=== PATIENT | female | born 2000 | race Caucasian/White ===

== ENCOUNTER 2021-05-02 15:51 | Emergency (ER) | payer OTHER, MEDICAID, SELFPAY ==
[2021-05-02 15:53] VITALS: BP 143/87; PULSE 85; RESP 15; TEMP 37.2; O2SAT 97; BMI 47.5
--- NOTE | 2021-05-02 15:56 | DI.RAD.S_ITS ---
PROCEDURE: XR FOOT RT MIN 3V INDICATIONS: foot pain TECHNIQUE: 3 views of the foot were acquired. COMPARISON: None. FINDINGS: Bones: No fractures or dislocations. No suspicious bony lesions. Soft tissues: No tibiotalar joint effusion. Achilles tendon appears normal. IMPRESSION: No acute fracture. No osseous lesion. If symptoms and/or clinical suspicion for pathology persist, further assessment with repeat, or advanced imaging (e.g., CT, MRI, or bone scan) may be helpful for further assessment. Dictated by: Bernardino Lopez M.D. on 05/02/2021 at 16:21 Approved by: Bernardino Lopez M.D. on 05/02/2021 at 16:22
[2021-05-02 18:25] VITALS: PULSE 89; O2SAT 96
[2021-05-02 18:26] VITALS: BP 121/74; PULSE 89; O2SAT 97
--- NOTE | 2021-05-02 18:39 | ED_ITS ---
HPI - Extremity Problem General Chief complaint: Extremity Problem,Nontraumatic Stated complaint: RIGHT FOOT SWEELING HURTS UNABLE TO PUT WEIGHT ON Time Seen by Provider: 05/02/21 18:33 Source: patient Mode of arrival: Ambulatory Related Data Previous Rx's Medication Instructions Recorded metformin 500 mg tablet 500 mg PO BID #60 tab 12/21/16 (Glucophage) norgestimate 0.25 mg-ethinyl 1 tab PO QDAY #1 pac 02/23/17 estradiol 35 mcg tablet (Ortho-Cyclen (28)) Allergies Allergy/AdvReac Type Severity Reaction Status Date / Time No Known Drug Allergies Allergy Verified 05/02/21 15:53 Patient History Social History Smoking Status: Unknown if ever smoked Smoking Status: Unknown if ever smoked alcohol intake frequency: holidays/special occasions only Substance Use Type: marijuana Exam Initial Vital Signs Initial Vital Signs: Vital Signs Temperature 99.0 F 05/02/21 15:53 Pulse Rate 85 05/02/21 15:53 Respiratory Rate 15 05/02/21 15:53 Blood Pressure 143/87 H 05/02/21 15:53 Pulse Oximetry 97 05/02/21 15:53 Course Orders Ordered: ED Orders 05/02/21 15:56 XR foot RT min 3V Stat Vital Signs Vital signs: Vital Signs - 8 hr 05/02/21 15:53 05/02/21 18:25 05/02/21 18:26 Temperature 99.0 F Pulse Rate 85 89 89 Respiratory Rate 15 Blood Pressure 143/87 H 121/74 Pulse Oximetry 97 96 97 MDM - Extremity (Nontraumatic) Imaging Data Extremity x-ray #1: Radiologist's Impression: [address] [address] XRay Report Signed Patient: Erin Tompkins MR#: [id number] : 2000 Acct:[id number] Age/Sex: 21 / F Date of Service: 05/02/21 Loc: ED Accession Number: [id number] ?? Procedure: XR foot RT min 3V Ordering Provider: Rosalina Vora D.O. PROCEDURE:? XR FOOT RT MIN 3V ? INDICATIONS:? foot pain ? TECHNIQUE:? 3 views of the foot were acquired.? ? COMPARISON:? None. ? FINDINGS:? ? Bones:? No fractures or dislocations.? No suspicious bony lesions.? ? Soft tissues:? No tibiotalar joint effusion.? Achilles tendon appears normal.? ? ? IMPRESSION:? No acute fracture. No osseous lesion. If symptoms and/or clinical suspicion for pathology persist, further assessment with repeat, or advanced imaging (e.g., CT, MRI, or bone scan) may be helpful for further assessment. ? ? Dictated by: Bernardino Lopez M.D. on 05/02/2021 at 16:21 ? ? Approved by: Bernardino Lopez M.D. on 05/02/2021 at 16:22 ? Discharge Plan Departure Prescriptions: No Action metformin [Glucophage] 500 MG tablet 500 mg PO BID Qty: 60 2RF norgestimate-ethinyl estradiol [Ortho-Cyclen (28)] 1 EACH tablet 1 tab PO QDAY Qty: 1 2RF Referrals: Nisha Guerra MD [Primary Care Provider] -
--- NOTE | 2021-05-02 19:28 | ED_ITS ---
HPI - Extremity Problem <Mando Sanchez PA-C - Last Filed: 05/02/21 19:54> General Chief complaint: Extremity Problem,Nontraumatic Stated complaint: RIGHT FOOT SWEELING HURTS UNABLE TO PUT WEIGHT ON Time Seen by Provider: 05/02/21 18:33 Source: patient Mode of arrival: Ambulatory History of Present Illness HPI Narrative: Patient is a 21-year-old female presenting to the emergency department today for evaluation of right foot pain. She explains that she awoke approximately 1 week ago with pain and associated swelling on the dorsal aspect of her right foot, noting that she heard a ?popping? coming from the right foot while she was walking. She states that her pain has gradually worsened throughout the week, noting that today she started to experience tingling in the right foot. Of note, patient denies any known trauma or injury to the area. She explains she is able to bear weight on the right lower extremity with increased discomfort. She denies fever, chills, chest pain, cough, shortness of breath, nausea, vomiting, diarrhea, constipation, abdominal pain, dysuria, hematuria, or any other concerning symptoms. No further concerns were voiced at this time. Related Data Previous Rx's Medication Instructions Recorded metformin 500 mg tablet 500 mg PO BID #60 tab 12/21/16 (Glucophage) norgestimate 0.25 mg-ethinyl 1 tab PO QDAY #1 pac 02/23/17 estradiol 35 mcg tablet (Ortho-Cyclen (28)) Allergies Allergy/AdvReac Type Severity Reaction Status Date / Time No Known Drug Allergies Allergy Verified 05/02/21 15:53 Review of Systems <Mando Sanchez PA-C - Last Filed: 05/02/21 19:54> Constitutional Constitutional: Denies chills, Denies fatigue, Denies fever(s), Denies frequent falls, Denies lethargy and Denies weakness Eyes Eyes: Denies loss of vision ENT Ears, Nose, Mouth, and Throat: Denies dizziness and Denies neck pain Cardiovascular Cardiovascular: Denies chest pain, Denies irregular heart rhythm, Denies lightheadedness, Denies palpitations, Denies dyspnea, Denies dyspnea on exertion and Denies orthopnea Respiratory Respiratory: Denies cough, Denies dyspnea, Denies dyspnea on exertion and Denies wheezing Gastrointestinal Gastrointestinal: Denies abdominal pain, Denies change in bowel habits, Denies diarrhea, Denies nausea and Denies vomiting Genitourinary Genitourinary: Denies hematuria, Denies flank pain, Denies urinary incontinence and Denies urinary urgency Musculoskeletal Musculoskeletal: Denies back pain, Reports arthralgias (Right foot pain), Reports joint swelling (Right foot), Denies muscle weakness, Denies neck pain, Denies numbness and Denies tingling Integumentary/Breasts Skin/Breast: Denies pruritus, Denies erythema, Denies rash and Denies wounds Neurologic Neurologic: Denies behavioral changes, Denies confusion, Denies dizziness, Denies frequent falls, Denies loss of vision, Denies numbness, Denies tingling and Denies weakness Psychiatric Psychiatric: Denies behavioral changes and Denies confusion Endocrine Endocrine: Denies fatigue and Denies palpitations Allergic/Immunologic Allergic/Immunologic: Denies wheezing Patient History <Mando Sanchez PA-C - Last Filed: 05/02/21 19:54> Social History Smoking Status: Unknown if ever smoked Smoking Status: Unknown if ever smoked alcohol intake frequency: holidays/special occasions only Substance Use Type: marijuana Exam <Mando Sanchez PA-C - Last Filed: 05/02/21 19:54> Narrative Exam Narrative: GENERAL: 21 year old patient appears stated age. Well-developed patient, in no acute distress. HEAD: Atraumatic. Normocephalic. EYES: Pupils equal round and reactive. Extraocular motions intact. No scleral icterus. No injection or drainage. ENT: Nose without bleeding, purulent drainage. Throat without erythema, tonsillar hypertrophy or exudate. Airway patent. NECK: Trachea midline. Non tender CARDIOVASCULAR: Regular rate and rhythm without murmurs, gallops, or rubs. RESPIRATORY: Clear to auscultation. Breath sounds equal bilaterally. No wheezes, rales, or rhonchi. GASTROINTESTINAL: Abdomen soft, non-tender, nondistended. EXTREMITIES: No edema. Mild tenderness to palpation appreciated along the dorsal aspect of the right foot distal to the deltoid ligament. No significant deformity or swelling appreciated. No overlying ecchymosis or erythema. No tenderness to palpation appreciated along the medial or lateral aspect of the right ankle. Gross motor function intact throughout the bilateral lower extremities. Good sensation light touch appreciated throughout the bilateral lower extremities. DP pulse palpated on the right. BACK: Nontender without deformity or crepitance. No flank tenderness. NEURO: AOx3. SKIN: No rash or erythema of visible areas Initial Vital Signs Initial Vital Signs: Vital Signs Temperature 99.0 F 05/02/21 15:53 Pulse Rate 85 05/02/21 15:53 Respiratory Rate 15 05/02/21 15:53 Blood Pressure 143/87 H 05/02/21 15:53 Pulse Oximetry 97 05/02/21 15:53 <Rosalina Vora DO - Last Filed: 05/05/21 08:43> Initial Vital Signs Initial Vital Signs: Vital Signs Temperature 99.0 F 05/02/21 15:53 Pulse Rate 85 05/02/21 15:53 Respiratory Rate 15 05/02/21 15:53 Blood Pressure 143/87 H 05/02/21 15:53 Pulse Oximetry 97 05/02/21 15:53 Course <Mando Sanchez PA-C - Last Filed: 05/02/21 19:54> Course Course Narrative: X-ray of right foot obtained. Orders Ordered: ED Orders 05/02/21 15:56 XR foot RT min 3V Stat Vital Signs Vital signs: Vital Signs - 8 hr 05/02/21 15:53 05/02/21 18:25 05/02/21 18:26 Temperature 99.0 F Pulse Rate 85 89 89 Respiratory Rate 15 Blood Pressure 143/87 H 121/74 Pulse Oximetry 97 96 97 05/02/21 19:46 05/02/21 19:47 Temperature Pulse Rate 85 Respiratory Rate Blood Pressure 153/95 H Pulse Oximetry 99 97 <Rosalina Vora DO - Last Filed: 05/05/21 08:43> Orders Ordered: ED Orders 05/02/21 15:56 XR foot RT min 3V Stat Vital Signs Vital signs: Vital Signs - 8 hr 05/02/21 15:53 05/02/21 18:25 05/02/21 18:26 Temperature 99.0 F Pulse Rate 85 89 89 Respiratory Rate 15 Blood Pressure 143/87 H 121/74 Pulse Oximetry 97 96 97 05/02/21 19:46 05/02/21 19:47 Temperature Pulse Rate 85 Respiratory Rate Blood Pressure 153/95 H Pulse Oximetry 99 97 MDM - Extremity (Nontraumatic) <Mando Sanchez PA-C - Last Filed: 05/02/21 19:54> Imaging Data Extremity x-ray #1: Radiologist's Impression: PROCEDURE:? XR FOOT RT MIN 3V ? INDICATIONS:? foot pain ? TECHNIQUE:? 3 views of the foot were acquired.? ? COMPARISON:? None. ? FINDINGS:? ? Bones:? No fractures or dislocations.? No suspicious bony lesions.? ? Soft tissues:? No tibiotalar joint effusion.? Achilles tendon appears normal.? ? ? IMPRESSION:? No acute fracture. No osseous lesion. If symptoms and/or clinical suspicion for pathology persist, further assessment with repeat, or advanced imaging (e.g., CT, MRI, or bone scan) may be helpful for further assessment. ? ? Dictated by: Bernardino Lopez M.D. on 05/02/2021 at 16:21 ? ? Approved by: Bernardino Lopez M.D. on 05/02/2021 at 16:22 ? [facility] Narrative Medical decision making narrative: Differential diagnosis to consider but not limited to fracture versus dislocation versus sprain versus strain. Overall, physical examination and x- ray imaging obtained in the emergency department today were very reassuring. I discussed results of the x-ray with the patient and informed her that no acute bony abnormality was identified on x-ray. I urged the patient to continue using Tylenol and ibuprofen as needed for pain management. Additionally, encourage the patient to continue to ice the right foot and keep it elevated with a compressive dressing to help alleviate discomfort. She expresses understanding and agrees to plan. Additionally, I informed the patient that OB setting up a referral for podiatric follow-up. Patient states that this time that she is comfortable being discharged home and is stable for discharge. Strict return precautions were discussed with the patient prior to discharge. Discharge Plan Departure Patient Disposition: Home Clinical Impression: Acute pain of right foot Instructions: DI for Foot Pain Activity Restrictions/Additional Instructions: *You have been diagnosed with acute right foot pain *What to do: *Please continue to take your regular medications as directed. [ ] New medication prescriptions sent to your pharmacy: [ ] [ ] New medication written as a paper prescription [X] No new medications given You were evaluated in the emergency department today for right foot pain. X-ray imaging obtained in the emergency department today returned reassuring with no signs of acute bony abnormality identified. I recommend taking Tylenol and ibuprofen as needed for pain management. Additionally, encouraged to continue applying ice to the painful area as needed. You can keep the right lower extremity elevated at rest to reduce swelling, and a compressive dressing such as an Scott bandage can be applied to the right foot to alleviate discomfort. I have set up a referral for podiatric follow-up. The office should be contacting you to set up an appointment. Please follow-up with the primary care provider within the next 2-3 days further evaluation. Do not hesitate to return to the emergency department if you experience worsening pain, inability to bear weight on the right lower extremity, worsening swelling, loss of sensation in the right lower extremity, or any other concerning symptoms. *Please follow up with your primary care provider in 2-3 days, call for an appointment. Let them know you were seen in the Emergency Department and that we ask that you be seen in follow up. We will electronically transmit a record of today's note if your PCP is in our system *If you do not have a primary care provider please contact the [facility] Resource line at [phone]. They will ask some questions about your medical history and help get you set up with a doctor in the community. *Return to Emergency Department if you should have any new, worsening or concerning symptoms, such as fever greater than 101 F, shaking chills, worsening pain, persistent vomiting or other bothersome symptoms. Prescriptions: No Action metformin [Glucophage] 500 MG tablet 500 mg PO BID Qty: 60 2RF norgestimate-ethinyl estradiol [Ortho-Cyclen (28)] 1 EACH tablet 1 tab PO QDAY Qty: 1 2RF Referrals: Gris Zaldivar DPM [Physician] - 5-7 days Nisha Guerra MD [Primary Care Provider] - <Rosalina Vora DO - Last Filed: 05/05/21 08:43> Cosign ED Attending Cosignature Attestation: I was immediately available in the department for consultation. Documentation has been reviewed.
[2021-05-02 19:46] VITALS: O2SAT 99
[2021-05-02 19:47] VITALS: BP 153/95; PULSE 85; O2SAT 97
== END 2021-05-02 19:50 | disposition home or self-care (01) ==
PROVIDERS: Emergency Provider Physician Assistant; PCP Pediatrics
DX: M79.671 Pain in right foot (principal)
CPT/HCPCS: 73630; 99281; 99283

== ENCOUNTER → 2021-12-19 10:02 | Outpatient (CLI) | payer OTHER, MEDICAID, SELFPAY ==
[2021-12-19 11:15] LABS: Add Manual Diff / Slide Review NO; Basophils Absolute Auto 100 /uL (0-100); Basophils Percent Auto 1.1 % (0-2); Eosinophils Absolute Auto 200 /uL (0-450); Eosinophils Percent Auto 2.9 % (2-4); Hematocrit 45.3 % (36-46); Hemoglobin 15.6 g/dL (12.0-16.0); Lymphocytes Absolute Auto 2200 /uL (1100-4500); Lymphocytes Percent Auto 30.1 % (25-40); Mean Corpuscular HGB Conc 34.4 % (30-36); Mean Corpuscular Hemoglobin 29.5 PG (26-34); Mean Corpuscular Volume 85.7 fL (80-100); Monocytes Absolute Auto 500 /uL (0-900); Monocytes Percent Auto 6.8 % (3-14); Neutrophils Absolute Auto 4300 /uL (1500-7000); Neutrophils Percent Auto 59.1 % (50-75); Platelet Count 352 X10^3/uL (150-400); Red Blood Cell Count 5.29 X10^6/uL (4.0-5.2); Red Cell Distribution Width 14.2 % (11.6-14.8); White Blood Cell Count 7.2 X10^3/uL (4.5-11.0)
[2021-12-19 11:24] LABS: Hemoglobin A1C% w Est Avg Glu 5.5 % (4.0-6.0)
[2021-12-19 11:30] LABS: Alanine Aminotransferase 26 IU/L (<35); Albumin 4.7 g/dL (3.5-5.0); Albumin Globulin Ratio 1.3 (1.0-2.8); Alkaline Phosphatase 87 U/L (38-126); Aspartate Aminotransferase 26 IU/L (14-36); BUN Creatinine Ratio 9.2 (6-22); Bilirubin Total 0.4 mg/dL (0.2-1.3); Blood Urea Nitrogen 12 mg/dL (7-17); Calcium 9.5 mg/dL (8.4-10.2); Carbon Dioxide 21 mmol/L (22-32); Chloride 106 mmol/L (98-107); Cholesterol 224 mg/dL (140-199); Estimated Glomerular Filt Rate 59 mL/min (>60); Globulin 3.7 g/dL (1.7-4.1); Glucose 91 mg/dL (70-100); HDL Cholesterol 31 mg/dL (40-60); HEMOLYSIS < 15 (0-50); LDL Cholesterol Calculated 163 mg/dL (<100); Potassium 4.3 mmol/L (3.4-5.1); Sodium 140 mmol/L (137-145); Total Protein 8.4 g/dL (6.3-8.2); Triglycerides 151 mg/dL (35-150)
[2021-12-19 12:00] LABS: TSH w/ Reflex to FT4 2.18 uIU/mL (0.47-4.68)
== END ==
PROVIDERS: PCP Family Medicine; Referring Provider Family Medicine; Visit Provider Family Medicine
DX: E28.2 Polycystic ovarian syndrome (principal); R73.03 Prediabetes
CPT/HCPCS: 36415; 80053; 80061; 83036; 84443; 85025

== ENCOUNTER → 2022-08-16 16:52 | Outpatient (CLI) | payer OTHER, MEDICAID, SELFPAY ==
--- NOTE | 2022-08-16 16:54 | DI.RAD.S_ITS ---
PROCEDURE: XR HIP W PEL IF DONE LT 2V INDICATIONS: left hip pain TECHNIQUE: AP pelvis with lateral view(s) of the left hip(s). COMPARISON: None. FINDINGS: Bones: No fractures or dislocations. Pelvic ring appears intact. No suspicious bony lesions. Soft tissues: The visualized bowel gas pattern is normal. No suspicious soft tissue calcifications. IMPRESSION: No visualized acute fracture or dislocation. However, if clinical concern and/or pain persist, short interval imaging followup in 7-10 days is recommended, as occult injury cannot be definitively excluded. Dictated by: Marline Agudelo M.D. on 08/17/2022 at 13:59 Approved by: Marline Agudelo M.D. on 08/17/2022 at 13:59
== END ==
PROVIDERS: PCP Family Medicine; Referring Provider Family Medicine; Visit Provider Family Medicine
DX: M25.552 Pain in left hip (principal)
CPT/HCPCS: 73502

== ENCOUNTER → 2023-03-02 15:35 | Outpatient (CLI) | payer OTHER, MEDICAID, SELFPAY ==
--- NOTE | 2023-03-02 15:35 | DI.RAD.S_ITS ---
PROCEDURE: XR KNEE LT 3V INDICATIONS: left knee pain TECHNIQUE: 3 views of the knee were acquired. COMPARISON: [facility], , KNEE 3V LEFT, 12/20/2015, 11:48. FINDINGS: Bones: No fractures or dislocations. No suspicious bony lesions. Soft tissues: No joint effusion. No suspicious soft tissue calcifications. IMPRESSION: No acute osseous abnormality. If pain persists with conservative management, consider repeat x-ray in 10-14 days or cross-sectional imaging. Dictated by: Pradeep Oliver M.D. on 03/02/2023 at 16:33 Approved by: Pradeep Oliver M.D. on 03/02/2023 at 16:33
== END ==
PROVIDERS: PCP Family Medicine; Referring Provider Family Medicine; Visit Provider Family Medicine
DX: M25.562 Pain in left knee (principal); G89.29 Other chronic pain; Z87.39 Personal history of other diseases of the musculoskeletal system and connective tissue
CPT/HCPCS: 73562

== ENCOUNTER → 2023-09-22 10:56 | Outpatient (CLI) | payer OTHER, MEDICAID, SELFPAY ==
[2023-09-22 11:44] LABS: Add Manual Diff / Slide Review NO; Basophils Absolute Auto 100 /uL (0-100); Basophils Percent Auto 1.3 % (0-2); Eosinophils Absolute Auto 400 /uL (0-450); Eosinophils Percent Auto 4.9 % (2-4); Hematocrit 42.6 % (36-46); Hemoglobin 14.4 g/dL (12.0-16.0); Lymphocytes Absolute Auto 2400 /uL (1100-4500); Lymphocytes Percent Auto 32.2 % (25-40); Mean Corpuscular HGB Conc 33.9 % (30-36); Mean Corpuscular Hemoglobin 30.7 PG (26-34); Mean Corpuscular Volume 90.5 fL (80-100); Monocytes Absolute Auto 400 /uL (0-900); Monocytes Percent Auto 5.5 % (3-14); Neutrophils Absolute Auto 4100 /uL (1500-7000); Neutrophils Percent Auto 56.1 % (50-75); Platelet Count 302 X10^3/uL (150-400); Red Cell Distribution Width 14.2 % (11.6-14.8); White Blood Cell Count 7.4 X10^3/uL (4.5-11.0)
[2023-09-22 11:55] LABS: Creatinine Urine Random 41.33 mg/dL
[2023-09-22 11:58] LABS: Hemoglobin A1C% w Est Avg Glu 5.1 % (4.0-6.0)
[2023-09-22 12:00] LABS: Microalbumin Urine Random < 0.6 mg/dL (0-1.6)
[2023-09-22 12:19] LABS: Alanine Aminotransferase 16 IU/L (<35); Albumin 4.2 g/dL (3.5-5.0); Albumin Globulin Ratio 1.6 (1.0-2.8); Alkaline Phosphatase 73 U/L (38-126); Aspartate Aminotransferase 22 IU/L (14-36); Bilirubin Total 0.4 mg/dL (0.2-1.3); Blood Urea Nitrogen 11 mg/dL (7-17); Calcium 9.2 mg/dL (8.4-10.2); Carbon Dioxide 26 mmol/L (22-32); Chloride 106 mmol/L (98-107); Estimated Glomerular Filt Rate > 60 mL/min (>60); Globulin 2.7 g/dL (1.7-4.1); Glucose 91 mg/dL (70-100); HEMOLYSIS < 15 (0-50); Potassium 4.6 mmol/L (3.4-5.1); Sodium 137 mmol/L (137-145); Total Protein 6.9 g/dL (6.3-8.2)
== END ==
PROVIDERS: PCP Family Medicine; Referring Provider Family Medicine; Visit Provider Family Medicine
DX: I10 Essential (primary) hypertension (principal); E28.2 Polycystic ovarian syndrome; R73.03 Prediabetes
CPT/HCPCS: 36415; 80053; 82043; 82570; 83036; 83525; 85025

== ENCOUNTER → 2023-10-19 15:31 | Outpatient (CLI) | payer OTHER, MEDICAID, SELFPAY ==
[2023-10-19 17:57] LABS: Cholesterol 213 mg/dL (140-199); HDL Cholesterol 44 mg/dL (40-60); LDL Cholesterol Calculated 140 mg/dL (<100); Triglycerides 147 mg/dL (35-150)
== END ==
PROVIDERS: PCP Family Medicine; Referring Provider Family Medicine; Visit Provider Family Medicine
DX: I10 Essential (primary) hypertension (principal); E78.5 Hyperlipidemia, unspecified
CPT/HCPCS: 36415; 80061